=== PATIENT | female | born 1965 | race Caucasian/White ===

== ENCOUNTER 2016-09-09 07:13 | Day surgery (SDC) | payer BC ==
--- NOTE | ~2016-09-09 | EGD ---
EGD REPORT [facility] [address] [id number] NAME: MICHEL ALVAREGNA : 65 STATUS : REG [facility] PAT#: [id number] AGE: 50 ADM/REG DATE : 09/09/16 MR#: [id number] REPORT SERV DATE: 09/09/16 DICTATED BY: DEBORAH DOVER DATE: 09/09/16 REPORT STATUS : Draft [facility] BY: [facility] DATE: 09/09/16 Endoscopy Center Patient Name: Michel Alvarenga Date of : 1965 Attending MD: DEBORAH DOVER MD Procedure Date No Time: 09/09/2016 Procedure: Colonoscopy Indications: Screening for colorectal malignant neoplasm Referring MD: TARUN MONGE II Medicines: Monitored Anesthesia Care Complications: No immediate complications. Procedure: Pre-Anesthesia Assessment: - ASA Grade Assessment: III - A patient with severe systemic disease. After I obtained informed consent, the scope was passed under direct vision. Throughout the procedure, the patient's blood pressure, pulse, and oxygen saturations were monitored continuously. The CF [id number] was introduced through the anus and advanced to the terminal ileum, with identification of the appendiceal orifice and IC valve. The colonoscopy was performed with moderate difficulty due to significant looping and the patient's body habitus. The patient tolerated the procedure well. The quality of the bowel preparation was good. Findings: The digital rectal exam was normal. Pertinent negatives include no palpable rectal lesions. Hemorrhoids were found during endoscopy and were moderate. A sessile polyp was found in the rectum. The polyp was 2 mm in size. The polyp was removed with a cold biopsy forceps. Resection and retrieval were complete. The terminal ileum appeared normal. Impression: - Hemorrhoids. - One 2 mm polyp in the rectum. Resected and retrieved. Recommendation: - Patient has a contact number available for emergencies. The signs and symptoms of potential delayed complications were discussed with the patient. Return to normal activities tomorrow. Written discharge instructions were provided to the patient. - Regular diet. - Continue present medications. EGD REPORT [address] [address] NAME: MICHEL ALVARENGA : 65 STATUS : REG [facility]#: [id number] AGE: 50 ADM/REG DATE : 09/09/16 MR#: [id number] REPORT SERV DATE: 09/09/16 DICTATED BY: DEBORAH DOVER DATE: 09/09/16 REPORT STATUS : Draft TRANSCRIBED BY: [employer] DATE: 09/09/16 - Return to GI clinic PRN. - Repeat colonoscopy in 5-10 years for surveillance based on pathology results. - Return to GI clinic PRN. Procedure Code(s): --- Professional --- 84682, Colonoscopy, flexible, proximal to splenic flexure; with biopsy, single or multiple Diagnosis Code(s): --- Professional --- K64.9, Unspecified hemorrhoids K62.1, Rectal polyp Z12.11, Encounter for screening for malignant neoplasm of colon CPT copyright 2013 [employer]. All rights reserved. The codes documented in this report are preliminary and upon health information coder review may be revised to meet current compliance requirements. DEBORAH DOVER MD 09/09/2016 10:01 AM This report has been signed electronically. Number of Addenda: 0 Note Initiated On: 09/09/2016 9:26 AM Scope Withdrawal Time 0 hours 9 minutes 18 seconds [id number] [place] [address]
[~2016-09-09 07:13] MED LIST: ADVIL PO; ALEVE220 MG PO; CO Q-10100 MG PO; ESTRACE1 MG PO; FISH-EPA1000 MG PO; MAGOX4 PO; MULTI-VIT HP PO; PROZAC PO; VIT B-SIX 50 MG50 MG PO; [UNRECOGNIZED DRUG - OTHER] PO
== END 2016-09-09 23:59 | disposition home or self-care (01) ==
LOC: DMU 07:13
PROVIDERS: Internal Medicine Gastroenterology
PROC: 0DBP8ZX Excision of Rectum, Via Natural or Artificial Opening Endoscopic, Diagnostic (ICD-10-PCS; principal; 2016-09-09 09:00)
DX: Z12.11 Encounter for screening for malignant neoplasm of colon (principal); K62.1 Rectal polyp; K64.9 Unspecified hemorrhoids; G43.909 Migraine, unspecified, not intractable, without status migrainosus; G47.33 Obstructive sleep apnea (adult) (pediatric); E66.01 Morbid (severe) obesity due to excess calories; Z99.89 Dependence on other enabling machines and devices; Z79.1 Long term (current) use of non-steroidal anti-inflammatories (NSAID); Z79.899 Other long term (current) drug therapy; Z90.710 Acquired absence of both cervix and uterus; Z90.49 Acquired absence of other specified parts of digestive tract; Z98.890 Other specified postprocedural states
CPT/HCPCS: 88305